=== PATIENT | female | born 1965 | race Asian ===

== ENCOUNTER → 2018-11-04 07:10 | Day surgery (SDC) | payer SELFPAY ==
[~2018-11-04 07:10] MED LIST: Acetaminophen TAB* 325 MG PO PRN; Buffered Lidocaine 1% SYRIN* 1 ML/SYRINGE INTRADERM ONE; Bupivacaine 0.5%* 50 ML VIAL ONE; Ketorolac INJ* 30 MG/ML 1 ML VIAL IV PRN; Lactated Ringers 1000 ML Bag* 1,000 ML IV SCH; Lidocaine 1% INJ* 10 MG/ML 30 ML SDV ONE; Lidocaine 2.5%/Prilocain 2.5%* 5 GM TUBE ONE; Midazolam* 1 MG/ML 2 ML VIAL (2 MG) ONE; Naloxone* 0.4 MG/ML 1 ML VIAL IV PRN; Ondansetron INJ* 2 MG/ML VIAL IV PRN; Propofol* 10 MG/ML 20 ML BTL ONE; ceFAZolin 2 GM in NS PREMIX(*) 2 GM/100 ML BAG IVPB ONE; fentaNYL* 50 MCG/ML 2 ML VIAL (100 MCG VIAL) IV PRN; fentaNYL* 50 MCG/ML 2 ML VIAL (100 MCG VIAL) ONE; oxyCODONE/Acetamin 5/325 MG* TAB PO PRN
--- NOTE | 2018-11-04 15:21 | OP ---
Operative Report - Blank - Operative Report Date of Operation: 11/04/18 Note: Brief Operative Note Preop Dx: Left Breast mass Postop Dx: same Procedure: excision Left breast mass after needle-localization Anesthesia: EFRAÍN Surgeon: Jasbir Door Furring Installer: EVELYN Lamb; LUI Aragon Fluids: 1000 ml RL EBL: 20 ml Specimen: Left breast mass Drains: none Findings: dictated
[2018-11-04 17:03] VITALS: BP 114/80
--- NOTE | 2018-11-04 20:29 | OP ---
DATE OF OPERATION: 11/04/18 [facility] DATE OF : 61 SERVICE: General Surgery. ATTENDING SURGEON: Judy Martell MD. WAREHOUSE RECORD CLERK: EVELYN Arroyo. ANESTHESIOLOGIST: Dr. Charles Wilson. ANESTHESIA: Local with MAC. PRE-OP DIAGNOSIS: Left breast atypical ductal hyperplasia. POST-OP DIAGNOSIS: Left breast atypical ductal hyperplasia. OPERATIVE PROCEDURE: Left breast wire localized lumpectomy. INDICATIONS: Ms. Ivy is a very pleasant 53-year-old female who was found on screening mammogram to have calcifications in the left breast. She underwent core biopsy of these calcifications which showed atypical ductal hyperplasia. Therefore, she gave informed consent for an excisional biopsy of this area to confirm that there was no malignancy. She understood the risks, benefits, and alternatives of the procedure and wished to proceed. DESCRIPTION OF PROCEDURE: The patient was brought back to the operating room and placed on the operating table in the supine position. Sequential compression devices were placed in the bilateral lower extremities for DVT prophylaxis. Antibiotics were administered. The patient underwent local anesthesia as well as MAC anesthesia. Her left breast was prepped and draped in normal sterile fashion. Prior to beginning the procedure, a time-out was performed, verifying the patient's name, MR number, and the procedure to be performed. Next, a curvilinear incision was made around the wire that was located in the left upper inner quadrant. The skin was divided down to the subcutaneous tissue and then a cone of fat was removed following the wire. The specimen was oriented with a short stitch at the superior margin, middle length stitch at the medial margin, and then the long stitch at the lateral margin. The specimen was taken to mammography where it was confirmed that the wire, mammography abnormality, and the clip were all contained within the specimen. Next, hemostasis was obtained in the breast cavity, and then once this was obtained, the subdermal layer was closed using interrupted 3-0 Vicryl sutures. The skin was closed using a running 4-0 Monocryl suture, and sterile dressing was placed. The patient was taken to the PACU in stable condition. At the end of the case, all counts were correct and I was present during the entirety of the case. [id number] #: [id number] [facility]
== END | disposition home or self-care (01) ==
LOC: OR 07:10
PROVIDERS: ATTEND Surgery
DX: N60.92 Unspecified benign mammary dysplasia of left breast (principal)
CPT/HCPCS: 88307; A9270-GY; J0690; J2250; J2704; J3010; J3490